=== PATIENT | female | born 1955 | race Caucasian/White ===

== ENCOUNTER → 2017-08-27 | Outpatient (CLI) | payer OTHER ==
[~2017-08-27] MED LIST: ACE500 PO; ESTR-25 PO; FENO150C4 PO; HYDR12.561 PO; LISI-362 PO; LOS50 PO; METF-420 PO; OMEG-97 PO; SITA50TA7 PO; WAR5 PO
--- NOTE | 2017-08-27 17:08 | RADIOLOGY IMAGING REPORT ---
FACILITY: [facility] [place] PATIENT NAME: Cornelius Clark : 1955 MR: [id number] V: [id number] EXAM DATE: ORDERING PHYSICIAN: JANET GORMAN TECHNOLOGIST: [facility] Patient: Cornelius Clark : 1955 Visit/Account:[id number] Date of Sevice: 08/27/2017 PELVIC HISTORY: Bleeding, cervical biopsy TECHNIQUE: Transabdominal and transvaginal ultrasound pelvis. COMPARISON: CT abdomen and pelvis June 15, 2014 FINDINGS: Uterus: ; 6.4 cm length x 3.2 cm AP by 4.7 cm transverse. Myometrium: There are two hypoechoic masses in the uterine fundus. One measuring 2.2 cm in maximum d imension one measuring 7 mm in maximum dimension which may represent fibroids.. Endometrium: Unremarkable; double thickness 1.5 mm. Cervix: Grossly negative. Ovaries: Right - 1.4 x 1.3 x 0.9 cm Left - 0.7 x 1.1 x 1.4 cm Blood flow is documented in each ovary by duplex Doppler ultrasound. Adnexa: Grossly unremarkable. Free pelvic fluid: None. IMPRESSION: Atrophic ovaries bilaterally There are two uterine hypoechoic masses, the largest measuring 2.2 cm which may represent fibroids. Report Dictated By: Sangeeta Hayden MD at 08/27/2017 4:57 PM Report E-Signed By: Sangeeta Hayden MD at 08/27/2017 5:03 PM WSN:[email or web address]
== END ==
LOC: US 06:57
PROVIDERS: ATTEND Family Medicine
DX: N85.8 Other specified noninflammatory disorders of uterus (principal); N83.312 Acquired atrophy of left ovary; N83.311 Acquired atrophy of right ovary
CPT/HCPCS: 76856

== ENCOUNTER → 2018-09-06 | Outpatient (CLI) | payer OTHER ==
[2018-09-06 11:03] LABS: PLATELET COUNT, AUTOMATED 255 K/uL (150-450)
--- NOTE | 2018-09-06 12:17 | EKG ---
FACILITY: [facility] PATIENT NAME: YUE HOLLINGSWORTH : [id number] MR: [id number] V: [id number] EXAM DATE: ORDERING PHYSICIAN: JANET GORMAN TECHNOLOGIST: RIAZ Test Reason : PREOP-DVT Blood Pressure : / mmHG Vent. Rate : 068 BPM Atrial Rate : 068 BPM P-R Int : 194 ms QRS Dur : 086 ms QT Int : 352 ms P-R-T Axes : 019 -58 022 degrees QTc Int : 374 ms Sinus rhythm with marked sinus arrhythmia Left axis deviation Septal infarct , age undetermined Abnormal ECG No previous ECGs available Confirmed by Jesse Bender ([id number]) on 09/06/2018 2:45:43 PM Referred By: SHERIF Confirmed By:Jesse Jacinto
== END ==
LOC: LAB 10:33
PROVIDERS: ATTEND Family Medicine
DX: Z01.812 Encounter for preprocedural laboratory examination (principal); R94.31 Abnormal electrocardiogram [ECG] [EKG]; I49.9 Cardiac arrhythmia, unspecified; E11.65 Type 2 diabetes mellitus with hyperglycemia; I82.409 Acute embolism and thrombosis of unspecified deep veins of unspecified lower extremity
CPT/HCPCS: 36415; 82040; 82247; 82310; 82374; 82435; 82565; 82947; 83036; 84075; 84132; 84155; 84295; 84450; 84460; 84520; 85025; 93005

== ENCOUNTER → 2018-09-18 | Outpatient (CLI) | payer OTHER ==
--- NOTE | 2018-09-21 08:54 | RT STRESS TEST REPORT ---
FACILITY: [facility] PATIENT NAME: YUE HOLLINGSWORTH : [id number] MR: [id number] V: [id number] EXAM DATE: ORDERING PHYSICIAN: JANET GORMAN TECHNOLOGIST: Florian Acquisition Time: 2018-09-18 10:59:57 Total Exercise Time: 00:07:31 Test Indications: Abnormal ECG Medications: See chart. Protocol: SIXTO 2 Max HR: 151 BPM 95% of Pred: 158 BPM Max BP: 166/076 mmHG Max Work Load: 5.8 METS see stress echo report Confirmed by JOSH HASTINGS ([id number]), editor greeting card CHANTALE KELLY ([id number]) on 09/21/2018 8:54:11 AM Referred By: Overread By: JOSH HASTINGS
== END ==
LOC: US 02:09
PROVIDERS: ATTEND Family Medicine
DX: Z01.818 Encounter for other preprocedural examination (principal); E11.65 Type 2 diabetes mellitus with hyperglycemia; Z86.718 Personal history of other venous thrombosis and embolism
CPT/HCPCS: 93017; 93350

== ENCOUNTER → 2018-10-15 | Outpatient (REF) | payer OTHER ==
[2018-10-15 17:56] LABS: PLATELET COUNT, AUTOMATED 341 K/uL (150-450)
== END ==
LOC: ZZSENDIN 17:43
PROVIDERS: ATTEND Physician Assistant
DX: R10.30 Lower abdominal pain, unspecified (principal); R50.9 Fever, unspecified
CPT/HCPCS: 85025; 87088

== ENCOUNTER 2018-11-10 13:49 | Outpatient (RCR) | payer OTHER ==
[2018-11-10 14:29] VITALS: BP 147/75
--- NOTE | 2018-11-11 04:14 | TOBIN CONSULT ---
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 She underwent an oncologic staging procedure and tumor removal on 09/28/18. She is referred for consideration of postoperative vaginal brachytherapy. STAGE IB, grade 3. HISTORY This is a 63-year-old lady from the [facility] who is referred to me by Dr. Robert Alexander and Dr. Haseeb Forrester for discussion of vaginal brachytherapy as an adjunct to recent surgery for an intermediate- to high-risk endometrial carcinoma, recently undergoing surgical staging. The patient is accompanied by her . She states that she was experiencing vaginal discharge on a late basis over the last year, with radiographic evaluation to include pelvic ultrasound. She recently began experiencing postmenopausal vaginal bleeding and was seen by her [facility] provider team with recommendation of endometrial biopsy and repeat ultrasound. The endometrial biopsy returned adenocarcinoma, at least FIGO grade 2. That procedure was performed on 08/24/18. The patient was referred to Dr Haseeb Forrseter for [facility] oncology recommendations. Dr. Forrester took the patient to the OR on 10/08/18 at [facility]. He performed a da Sandra robotic laparoscopic radical vaginal hysterectomy with bilateral salpingo-oophorectomy. Simultaneously, he performed bilateral pelvic lymph node dissection as well as para-aortic lymph node sampling for staging. That procedure was performed on 10/08/18 with no postoperative complications. The patient was discharged to home the next day. She subsequently received a phone call from Dr. Forrester, who described the final pathology report to her and advised her to seek referral for vaginal cuff brachytherapy due to tumor characteristics listed below. On the final histopathology, the tumor was grade 3. The cancer was approximately 5 cm in greatest length. The tumor demonstrated deep myometrial extension. In fact, the tumor extended into 1.4 cm of endometrial thickness at 1.5 cm. The tumor is listed as invading the myometrium to within 1 mm of the serosa. Unfortunately, that tumor was not seen in lymphatic spaces. No LVI described. Three lymph nodes were examined. and were all negative for any malignancy. Washings were also obtained at the time of surgery, which were negative for malignant cells. Lower para-aortic lymph nodes were sampled and were also negative for malignant transformation. The tumor did not involve the cervix. Patient presently denies any progressive weight loss. She is back on her Eliquis and denies any significant pelvic pain or pressure. No recent change in bowel or bladder function. MEDICATIONS 1. Eliquis 5 mg as directed. 2. Aspirin 81 mg a day. 3. Hydrochlorothiazide 12.5 mg a day. 4. Losartan 100 mg a day. 5. Meloxicam 7.5 mg p.r.n. 6. Metformin 1000 mg a day. 7. Prilosec 20 mg a day. 8. Tradjenta 5 mg daily. 9. Vitamins including B-complex, B6, B12, D3, and vitamin E. 10. Bydureon 2 mg subcutaneous once weekly. ALLERGIES PENICILLIN. PAST MEDICAL HISTORY 1. Uterine malignancy with history listed above. 2. Type 2 diabetes. 3. Hypertension. 4. History of DVT. 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 She is and accompanied by her . She has one child, aged 35. Nonsmoker. FAMILY HISTORY Notable for a sister who has MS. No family history of malignancy. PAST SURGICAL HISTORY Appendectomy and LOWELL/BSO, 10/08/18. PHYSICAL EXAMINATION GENERAL: A pleasant 63-year-old female, medium to slightly larger build. VITAL SIGNS: Blood pressure 147/75, pulse 77, respirations 16, O2 saturation 92% on room air. Weight 165. HEENT: Unremarkable. LUNGS: Clear to auscultation bilaterally. HEART: Heart sounds regular. No audible murmur. ABDOMEN: Soft, with no gross organomegaly. Trocar sites are all inspected, which are healed nicely at this juncture. No tenderness noted. Normoactive bowel sounds present. EXTREMITIES: No edema or cyanosis. NEUROLOGIC: Grossly intact. IMPRESSION This is a pleasant 63-year-old lady who was recently diagnosed with grade 3 endometrial carcinoma. The patient has undergone appropriate surgical removal and staging by Dr. Haseeb Forrester. She is recovering nicely from that procedure. Patient is at significant risk for vaginal vault recurrence due to the tumor features of deep myometrial invasion and grade. I concur with recommendation to perform vaginal brachytherapy. My recommendation is to proceed as follows: 1. Baseline CBC and CMP today. 2. CT scan in two weeks. If the study is normal, proceed with vaginal brachytherapy with HDR technique. I will be delivering the treatment in [place] with directed delivery of 6 Gy x5 to the surface of the cylinder as recommended in the National Brachytherapy Society Guidelines. I went through the treatment indications, therapeutic details, and side effects, and the patient fully agrees to proceed with that recommendation. I will be seeing her on November 23 to perform the first of five vaginal cylinder treatments. She will receive treatment Friday/Friday/Friday the first week and Friday/Friday the second week, which will then complete the radiation therapy course. The patient will then undergo ongoing [facility] surveillance with Dr. Alexander and his medical associates on every three- to four-month basis as advised by Dr. Forrester. Consultation was completed, as well as the detailed discussion, over a 90-minute timeframe today. Patient and asked appropriate questions. They appear to be well counseled, however, prior to the visit as far as the therapeutic plan. Thank you for the referral and opportunity to assist on this patient's care. MARITZA
[2018-11-11] MEDS ORDERED: VIT1TABL4 PO (11:09)
[2018-11-11] MEDS ORDERED: OMEP-126 PO (11:09)
[2018-11-11] MEDS ORDERED: PARO-243 PO ×2 (11:09→11:12)
[2018-11-11] MEDS ORDERED: METF-452 PO (11:09)
[2018-11-11] MEDS ORDERED: FENO160T11 PO (11:09)
[2018-11-11] MEDS ORDERED: VIT1CAPS42 PO (11:09)
[2018-11-11] MEDS ORDERED: VITA-175 PO (11:09)
[2018-11-11] MEDS ORDERED: EXEN2PEN (11:09)
[2018-11-11] MEDS ORDERED: MELO-205 PO (11:09)
[2018-11-11] MEDS ORDERED: VIT1CAPS7 (11:09)
[2018-11-11] MEDS ORDERED: FOLI0.8T29 PO (11:09)
[2018-11-11] MEDS ORDERED: GLUC-158 PO (11:09)
[2018-11-11] MEDS ORDERED: APIX5TAB PO (11:09)
[2018-11-11] MEDS ORDERED: ASPI-1471 PO (11:09)
[2018-11-11] MEDS ORDERED: [UNRECOGNIZED DRUG - CODE] PO (11:09)
[2018-11-11] MEDS ORDERED: LINA5TAB PO (11:09)
[2018-11-11] MEDS ORDERED: UBID50TA3 PO (11:09)
[2018-11-11] MEDS ORDERED: VIT1CAPS22 (11:09)
== END 2019-02-07 ==
LOC: RAON 13:49
PROVIDERS: ATTEND Radiology Radiation Oncology
DX: Z02.9 Encounter for administrative examinations, unspecified (principal)